=== PATIENT | male | born 1945 | race Caucasian/White ===

== ENCOUNTER → 2016-08-13 | Outpatient (CLI) | payer MEDICARE | END | disposition home or self-care (01) | LOC: GMAL 10:34 | PROVIDERS: ATTEND Family Medicine | DX: D51.3 Other dietary vitamin B12 deficiency anemia (principal); E55.9 Vitamin D deficiency, unspecified; R97.20 Elevated prostate specific antigen [PSA] ==

== ENCOUNTER → 2016-09-17 | Outpatient (CLI) | payer MEDICARE | END | disposition home or self-care (01) | LOC: GMAL 14:27 | PROVIDERS: ATTEND Family Medicine | DX: R97.20 Elevated prostate specific antigen [PSA] (principal) ==

== ENCOUNTER → 2017-07-08 | Outpatient (CLI) | payer MEDICARE | END | disposition home or self-care (01) | LOC: GMAL 15:25 | PROVIDERS: ATTEND Family Medicine | DX: E55.9 Vitamin D deficiency, unspecified (principal); D51.3 Other dietary vitamin B12 deficiency anemia ==

== ENCOUNTER 2018-01-12 06:51 | Day surgery (SDC) | payer MEDICARE ==
--- NOTE | 2018-01-07 16:59 | SSS ---
CHIEF COMPLAINT: History of colon polyps. HISTORY OF PRESENT ILLNESS: Mr. Hernandez is a 72 year-old male who presented to my office for routine followup. He was overdue for a colonoscopy. The risks and benefits were discussed. He is agreeable to proceeding. He had a colonoscopy in 2001 and he had a single tubulovillous adenoma removed. He had a few left sided diverticula. His second colonoscopy was in May of 2005 and a single polyp was removed from his rectum. He had a third colonoscopy in August of 2008 that showed 2 small polyps and minimal diverticular disease. He is now due for repeat colonoscopy. He denies any symptoms referable to his bowels, specifically no abdominal pain, rectal bleeding or changes in his bowel habits or weight. PAST MEDICAL HISTORY: 1. Hyperlipidemia. 2. Hypertension. 3. History of colon polyps as above. 4. Gastroesophageal reflux disease that was cured with a Krystian. 5. Benign prostatic hypertrophy. 6. Low back fracture in 1990. 7. History of CEA in December of 2015. CT scan showed evidence of a prior one as well. 8. Seasonal allergies. PAST SURGICAL HISTORY: 1. Krystian fundoplication and hiatal hernia repair in [address] Dong. 2. Prostate biopsy times 2, both were negative by Dr. Oliverio Yee in 2000 and again in March of 2006. 3. Pterygium excision with a conjunctival Autograft to the right eye by Dr. Patrick Tomas on 10/14/16. 4. Colonoscopy as above. CURRENT MEDICATIONS: 1. Atorvastatin. 2. Lisinopril. 3. Full strength aspirin every day. ALLERGIES: PRAVASTATIN AND ZOCOR. FAMILY HISTORY: Father at 69 from lung cancer. Mother at 74 from a stroke. He has 2 brothers, Gene with hypertension and diabetes, and Bharath Dewitt whose medical history is unknown. He has 2 sisters both . Lizzette from a brain aneurysm at age 42 and Milagros from an VT at age 52. SOCIAL HISTORY: He is a retired stockbroker. He has never smoked cigarettes. He did smoke a pipe but not very often. He drinks alcohol on a regular basis. REVIEW OF SYSTEMS: Negative except as per History of Present Illness. PHYSICAL EXAMINATION: VITAL SIGNS: Blood pressure 140/80, height 5 feet 8-1/2 inches, weight 196. Pulse 87. GENERAL: He is awake and alert in no acute distress. HEENT: Unremarkable. NECK: Supple. CHEST: Lungs are clear. CARDIOVASCULAR: Regular rate and rhythm without appreciable murmurs. ABDOMEN: Soft, non-tender. EXTREMITIES: Without edema. RECTAL. Exam is deferred until time of colonoscopy. ASSESSMENT: 1. History of colon polyps. PLAN: Colonoscopy on 01/12/18. #[id number] MTDD
[~2018-01-12 06:51] MED LIST: LACTATED RINGERS 1,000 ML ONE
[2018-01-12] MEDS ORDERED: MIDAZOLAM INJ 2 MG/2 ML VIAL ONE (07:26)
[2018-01-12] MEDS ORDERED: fentaNYL CITRATE INJ 50 MCG/ML AMP ONE (07:26)
[2018-01-12] MEDS ORDERED: PROPOFOL 200 MG/20 ML VIAL IV ONE (09:00)
[2018-01-12] MEDS ORDERED: LIDOCAINE 1% 10 ML VIAL INJ ONE (09:00)
[2018-01-12 09:58] VITALS: BP 112/72; TEMP 97; O2SAT 98
--- NOTE | 2018-01-12 10:43 | OP ---
DATE OF PROCEDURE: 01/12/18 PREOPERATIVE DIAGNOSIS: 1. History of colonic polyps. POSTOPERATIVE DIAGNOSIS: 1. 0.5 x 0.25 cm proximal transverse colon polyp, biopsied x3 to obliteration. 2. 0.25 x 0.25 cm distal transverse colon polyp, biopsied x2 to obliteration. 3. 0.25 x 0.25 cm distal descending colon polyp, biopsied x2 to obliteration. 4. Sigmoid diverticulosis. PROCEDURE: 1. Colonoscopy. SURGEON: Stanford Aaron MD. ESTIMATED BLOOD LOSS: Less than 1 mL. COMPLICATIONS: No immediate complications. ANESTHESIA: Propofol 400 mg, fentanyl 1 mL and Versed 1 mg administered intravenously via Benedicto Rudolph CRNA. TECHNIQUE: After informed consent was obtained from the patient, the patient was taken to the Endoscopy Suite and placed in the left lateral decubitus position. Incremental doses of propofol, fentanyl and Versed were given until adequate sedation was obtained. Vital signs were monitored throughout the procedure. Supplemental oxygen was administered throughout the procedure. After adequate sedation was obtained, digital rectal examination was performed, which showed a moderately enlarged prostate without suspicious nodules. The colonoscope was then advanced into the patient's rectum and up through the sigmoid, descending, transverse and ascending colon to the level of the cecum. The usual cecal landmarks were identified. The terminal ileum was entered very briefly. Photographs of the cecum were taken on the way in. A distal transverse colon polyps was biopsied x1. Overall, his bowel prep was fairly good. There were some areas of liquid stool and great time and effort were taken to try to suction out as much of this as possible. On withdrawal of the scope, a 0.5 x 0.25 cm proximal transverse colon polyp was biopsied x3 to obliteration. Upon further withdrawal, the previously biopsied polyp was noted again and biopsied a second time to obliteration. This was in the distal transverse colon. In the distal descending, another small 0.25 x 0.25 cm colonic polyp was noted and biopsied x2 to obliteration. No other polyps were noted throughout the rest of the exam. There were multiple small left sided sigmoid diverticula noted. They were moderate in number. The scope was retroflexed upon itself in the rectum and no significant abnormalities were noted here. The colonoscope was then unretroflexed and air was suctioned out of the patient's rectum. The patient tolerated the procedure well. PLAN: Followup in my office in 7 to 10 days. We will repeat his scope in 3 to 5 years based on the pathology report, but likely closer to 5 years. #[id number] [facility]ITALJose Daniel
== END 2018-01-12 09:20 | disposition home or self-care (01) ==
LOC: AMB 06:51
PROVIDERS: ATTEND Family Medicine
DX: Z12.11 Encounter for screening for malignant neoplasm of colon (principal); D12.4 Benign neoplasm of descending colon; D12.3 Benign neoplasm of transverse colon; K57.30 Diverticulosis of large intestine without perforation or abscess without bleeding; I10 Essential (primary) hypertension; K21.9 Gastro-esophageal reflux disease without esophagitis; E78.5 Hyperlipidemia, unspecified; N40.0 Benign prostatic hyperplasia without lower urinary tract symptoms; Z86.010 Personal history of colon polyps; Z87.891 Personal history of nicotine dependence; Z88.8 Allergy status to other drugs, medicaments and biological substances; Z79.82 Long term (current) use of aspirin; Z79.899 Other long term (current) drug therapy
CPT/HCPCS: 00812; 45380; 88305; J2250; J3010; J3490; J7120

== ENCOUNTER → 2018-07-13 | Outpatient (CLI) | payer MEDICARE | LOC: GMAL 14:33 | PROVIDERS: ATTEND Family Medicine | DX: D51.3 Other dietary vitamin B12 deficiency anemia (principal); R53.82 Chronic fatigue, unspecified; E55.9 Vitamin D deficiency, unspecified; Z12.5 Encounter for screening for malignant neoplasm of prostate | CPT/HCPCS: 82306; 82607; 84443; G0103 ==

== ENCOUNTER → 2019-01-11 | Outpatient (CLI) | payer MEDICARE | LOC: GMAL 15:12 | PROVIDERS: ATTEND Family Medicine | DX: E55.9 Vitamin D deficiency, unspecified (principal); I10 Essential (primary) hypertension; E78.2 Mixed hyperlipidemia ==

== ENCOUNTER → 2019-07-22 | Outpatient (CLI) | payer MEDICARE | LOC: GMAL 15:19 | PROVIDERS: ATTEND Family Medicine | DX: D51.3 Other dietary vitamin B12 deficiency anemia (principal); I10 Essential (primary) hypertension; E78.2 Mixed hyperlipidemia; Z12.5 Encounter for screening for malignant neoplasm of prostate | CPT/HCPCS: 82607; G0103 ==

== ENCOUNTER → 2020-03-29 | Outpatient (CLI) | payer MEDICARE | LOC: GMAL 16:45 | PROVIDERS: ATTEND Family Medicine | DX: D51.3 Other dietary vitamin B12 deficiency anemia (principal); E55.9 Vitamin D deficiency, unspecified; I10 Essential (primary) hypertension; Z79.899 Other long term (current) drug therapy; E78.2 Mixed hyperlipidemia ==